=== PATIENT | female | born 1970 | race Caucasian/White ===

== ENCOUNTER 2020-08-10 16:52 | Inpatient (IN) | payer SELFPAY ==
[2020-08-10 21:32] VITALS: BMI 36.1
[2020-08-10] MEDS: Nicotine 21 MG PATCH TD SCH (21:44)
[2020-08-11 05:25] LABS: ALT (SGPT) 37 U/L (8-55); AST (SGOT) 28 U/L (5-34); Albumin 3.4 g/dL (3.5-5.0); Alkaline Phosphatase 99 U/L (40-110); Anion Gap 15 mmol/L (10-20); BUN (Urea Nitrogen) 15 mg/dL (9.8-20.1); Bilirubin, Total 0.3 mg/dL (0.2-1.2); Calc. Creatinine Clearance 137 mL/min (70-130); Calcium 9.2 mg/dL (7.8-10.44); Carbon Dioxide 18 mmol/L (22-29); Cardiac Risk 2.9 (Less than 4.5); Chloride 106 mmol/L (98-107); Cholesterol 168 mg/dl (< 200 Desired); Globulin 3.8 g/dL (2.4-3.5); Glucose 88 mg/dL (70-105); HDL Cholesterol 57 mg/dL (>60 Neg Risk); LDL Cholesterol, Calculated 90 mg/dL; Potassium 4.2 mmol/L (3.5-5.1); Protein, Total 7.2 g/dL (6.0-8.3); Sodium 135 mmol/L (136-145); Triglycerides 105 mg/dL (Less than 150)
[2020-08-11 06:48] LABS: SARS-CoV-2 PCR by NAA Not Detected (NotDetected)
[2020-08-11] MEDS ORDERED: Enoxaparin Sodium 40 MG/0.4 ML SYRINGE SC SCH (09:00)
[2020-08-11] MEDS ORDERED: Iopamidol 370 76% 100 ML VIAL ONE (09:18)
[2020-08-11] MEDS: Aspirin 81 mg Enteric Coated Tablet PO SCH (09:54)
[2020-08-11] MEDS: Metoprolol Tartrate 25 MG TAB PO SCH ×2 (09:55→20:22)
[2020-08-11] MEDS ORDERED: Communication Order-Pharmacy FS SCH (10:30)
[2020-08-11] MEDS ORDERED: Sodium Chloride 0.9% 1,000 ML IV SCH (10:30)
[2020-08-11] MEDS ORDERED: Nitroglycerin 100MG/250ML BOT 250 ML ONE (11:16)
[2020-08-11] MEDS ORDERED: Verapamil 5 MG/2 ML VIAL ONE (11:16)
[2020-08-11] MEDS ORDERED: Heparin 10,000 UNITS/ 10 ML VIAL ONE (11:16)
[2020-08-11] MEDS ORDERED: Midazolam HCl 2 mg/2 ml Vial ONE (11:53)
[2020-08-11] MEDS ORDERED: Fentanyl 100 MCG/2 ML VIAL ONE (11:53)
[2020-08-11] MEDS ORDERED: Sodium Chloride 0.9% 200 ML IV PRN (12:21)
[2020-08-11] MEDS ORDERED: Nitroglycerin 0.4 MG TAB (25 Tab Bottle) SL PRN (12:21)
[2020-08-11] MEDS ORDERED: Acetaminophen/Codeine 30-300mg Tablet PO PRN ×2 (12:21)
[2020-08-11] MEDS: Sodium Chloride 0.9% 1,000 ML IV SCH ×2 (12:50→22:02)
[2020-08-11 13:15] LABS: Amphetamine Detected (NotDetected); Barbiturates Screen Not Detected (NotDetected); Benzodiazepine Screen Not Detected (NotDetected); Cocaine Metabolite Screen Not Detected (NotDetected); Medtox Control Line Valid? VALID (VALID); Medtox Reader # READER 4; Methadone Not Detected (NotDetected); Methamphetamine Detected (NotDetected); Opiate Screen Not Detected (NotDetected); Oxycodone Screen Not Detected (NotDetected); Phencyclidine (PCP) Not Detected (NotDetected); THC/Cannabinoid Screen Not Detected (NotDetected); Tricyclic Screen Not Detected (NotDetected)
[2020-08-11] MEDS: Nicotine 21 MG PATCH TD SCH (20:23)
[2020-08-12] MEDS: Aspirin 81 mg Enteric Coated Tablet PO SCH (08:18)
[2020-08-12] MEDS: Metoprolol Tartrate 25 MG TAB PO SCH ×3 (08:18→20:18)
[2020-08-12] MEDS ORDERED: Lisinopril 5 MG TAB PO SCH ×2 (09:00)
[2020-08-12 17:00] LABS: ALT (SGPT) 33 U/L (8-55); AST (SGOT) 30 U/L (5-34); Albumin 3.2 g/dL (3.5-5.0); Alkaline Phosphatase 89 U/L (40-110); Anion Gap 14 mmol/L (10-20); BUN (Urea Nitrogen) 17 mg/dL (9.8-20.1); Bilirubin, Total 0.2 mg/dL (0.2-1.2); Calc. Creatinine Clearance 143 mL/min (70-130); Calcium 8.8 mg/dL (7.8-10.44); Carbon Dioxide 19 mmol/L (22-29); Chloride 107 mmol/L (98-107); Globulin 3.7 g/dL (2.4-3.5); Glucose 110 mg/dL (70-105); Magnesium 1.8 mg/dL (1.6-2.6); Phosphorus 3.6 mg/dL (2.3-4.7); Potassium 4.4 mmol/L (3.5-5.1); Protein, Total 6.9 g/dL (6.0-8.3); Sodium 136 mmol/L (136-145)
[2020-08-12] MEDS: Nicotine 21 MG PATCH TD SCH (21:39)
[2020-08-13 06:20] LABS: ALT (SGPT) 35 U/L (8-55); AST (SGOT) 28 U/L (5-34); Albumin 3.2 g/dL (3.5-5.0); Alkaline Phosphatase 86 U/L (40-110); Anion Gap 14 mmol/L (10-20); BUN (Urea Nitrogen) 17 mg/dL (9.8-20.1); Bilirubin, Total 0.4 mg/dL (0.2-1.2); Calc. Creatinine Clearance 141 mL/min (70-130); Calcium 8.8 mg/dL (7.8-10.44); Carbon Dioxide 19 mmol/L (22-29); Chloride 105 mmol/L (98-107); Globulin 3.6 g/dL (2.4-3.5); Glucose 102 mg/dL (70-105); Magnesium 1.7 mg/dL (1.6-2.6); Potassium 4.2 mmol/L (3.5-5.1); Protein, Total 6.8 g/dL (6.0-8.3); Sodium 134 mmol/L (136-145)
[2020-08-13] MEDS ORDERED: Lisinopril 5 MG TAB PO SCH (09:00)
[2020-08-13] MEDS: Aspirin 81 mg Enteric Coated Tablet PO SCH (09:01)
[2020-08-13] MEDS: Metoprolol Tartrate 25 MG TAB PO SCH (09:01)
[2020-08-13] MEDS ORDERED: Magnesium 2 GM/50 ML 2 GM in Premix Bag 1 BAG IVPB SCH (09:15)
[2020-08-13] MEDS ORDERED: Magnesium Oxide 250 MG TAB PO SCH (16:15)
[2020-08-13] MEDS ORDERED: Metoprolol Tartrate 100 MG TAB PO SCH (21:00)
[2020-08-13] MEDS ORDERED: Atorvastatin Calcium 20 MG TAB PO SCH (21:00)
[2020-08-13] MEDS: Metoprolol Tartrate 100 MG TAB PO SCH (21:32)
[2020-08-13] MEDS: Lisinopril 5 MG TAB PO SCH (21:32)
[2020-08-13] MEDS: Nicotine 21 MG PATCH TD SCH (21:34)
[2020-08-14 07:07] LABS: ALT (SGPT) 34 U/L (8-55); AST (SGOT) 26 U/L (5-34); Albumin 3.3 g/dL (3.5-5.0); Alkaline Phosphatase 87 U/L (40-110); Anion Gap 13 mmol/L (10-20); BUN (Urea Nitrogen) 17 mg/dL (9.8-20.1); Bilirubin, Total 0.3 mg/dL (0.2-1.2); Calc. Creatinine Clearance 137 mL/min (70-130); Calcium 9.4 mg/dL (7.8-10.44); Carbon Dioxide 23 mmol/L (22-29); Chloride 105 mmol/L (98-107); Globulin 3.7 g/dL (2.4-3.5); Glucose 101 mg/dL (70-105); Magnesium 1.6 mg/dL (1.6-2.6); Potassium 4.1 mmol/L (3.5-5.1); Sodium 137 mmol/L (136-145)
[2020-08-14] MEDS: Metoprolol Tartrate 100 MG TAB PO SCH (08:13)
[2020-08-14] MEDS: Aspirin 81 mg Enteric Coated Tablet PO SCH (08:13)
[2020-08-14] MEDS: Lisinopril 5 MG TAB PO SCH (08:14)
[2020-08-14] MEDS ORDERED: Magnesium Oxide 250 MG TAB PO SCH ×2 (09:00)
[2020-08-14 11:49] VITALS: BP 140/85; TEMP 98.4
== END 2020-08-14 11:51 | disposition left against medical advice (07) | DRG 918 ==
LOC: 2NO 20:49
PROVIDERS: ADMIT Family Medicine; ATTEND Family Medicine
PROC: 4A023N7 Measurement of Cardiac Sampling and Pressure, Left Heart, Percutaneous Approach (ICD-10-PCS; principal; 2020-08-11)
PROC: B2111ZZ Fluoroscopy of Multiple Coronary Arteries using Low Osmolar Contrast (ICD-10-PCS; 2020-08-11)
PROC: B2151ZZ Fluoroscopy of Left Heart using Low Osmolar Contrast (ICD-10-PCS; 2020-08-11)
DX: T43.621A Poisoning by amphetamines, accidental (unintentional), initial encounter (principal); I47.2 Ventricular tachycardia; I42.8 Other cardiomyopathies; F17.210 Nicotine dependence, cigarettes, uncomplicated; D72.829 Elevated white blood cell count, unspecified; Z20.822 Contact with and (suspected) exposure to COVID-19; F15.10 Other stimulant abuse, uncomplicated; R79.89 Other specified abnormal findings of blood chemistry; R59.0 Localized enlarged lymph nodes; I49.3 Ventricular premature depolarization; I25.10 Atherosclerotic heart disease of native coronary artery without angina pectoris; F14.10 Cocaine abuse, uncomplicated; I10 Essential (primary) hypertension; R00.1 Bradycardia, unspecified; Z83.6 Family history of other diseases of the respiratory system; Z82.3 Family history of stroke; Z91.14 Patient's other noncompliance with medication regimen; I50.9 Heart failure, unspecified
CPT/HCPCS: 36415; 71275; 80053; 80061; 80306; 83036; 83735; 84100; 93306; 93458; 99152; J1644; J1650; J2250; J3010; J3475; Q9967; U0003; U0005